=== PATIENT | female | born 1980 | race Two or more races ===

== ENCOUNTER 2017-01-05 06:14 | Day surgery (SDC) | payer OTHER ==
[~2017-01-05] VITALS: Ht 170.2 cm; Wt 66.2 kg
[2017-01-05 09:01] LABS: BASE EXCESS 2.9 mEq/L (-3 to +3); BICARBONATE 29.4 mEq/L (22-26); CARBOXY HGB 1.5 % (0-5); METHEMOGLOBIN 1.7 % (0-1.5); PCO2 52 mm Hg (35-45); PO2 48 mm Hg (80-100); pH 7.36 (7.35-7.45)
[2017-01-05 09:05] LABS: BASE EXCESS 0.2 mEq/L (-3 to +3); BICARBONATE 26.9 mEq/L (22-26); METHEMOGLOBIN 1.7 % (0-1.5); PCO2 51 mm Hg (35-45); PO2 49 mm Hg (80-100); pH 7.33 (7.35-7.45)
[2017-01-05 09:06] LABS: SITE SVC
== END 2017-01-05 12:16 | disposition home or self-care (01) ==
LOC: CATH 06:14
PROVIDERS: Internal Medicine Cardiovascular Disease
DX: R16.0 Hepatomegaly, not elsewhere classified (principal); I08.1 Rheumatic disorders of both mitral and tricuspid valves; R10.30 Lower abdominal pain, unspecified; R10.11 Right upper quadrant pain
CPT/HCPCS: 36600; 82803; C1894; J1644; J2250; J3010